=== PATIENT | male | born 1925 | race Caucasian/White ===

== ENCOUNTER 2016-08-12 13:07 | Inpatient (IN) | payer MEDICARE, BC ==
[2016-08-12] VITALS (10 sets, daily range): BP systolic 121–161; BP diastolic 44–69
[~2016-08-12] VITALS: Ht 182.9 cm; Wt 85.2 kg
[~2016-08-12 13:07] MED LIST: ACTOS30 MG PO; CENTRUM SILVER PO; CRESTOR5 M1 PO; FENOFIBRATE160 MG PO; FLOMAX0.4 M1 PO; FOLIC ACID1 MG PO; GLIPIZIDE10 MG PO; LEVAQUIN250 MG PO; LISINOPRIL10 MG PO; METO50TA52 PO; NAPROSYN500 MG PO; NEXIUM20 M1 PO; NIASPAN500 MG PO; NITROSTAT0.4 MG SL; PERCOCET1 TA4 PO; VITAMIN B-12500 MCG PO; VITAMIN D2000 UNI1 PO; XARELTO10 MG PO
[2016-08-12 14:53] LABS: HEMATOCRIT 39.8 % (39.0-50.0); IMMATURE GRANULOCYTES 0.5 % (0.0-1.0); MEAN CELL VOLUME 98.8 fL CALC (80.0-100.0); MEAN CORPUSCULAR HGB 32.3 pG CALC (26.0-32.0); MEAN CORPUSCULAR HGB CONC 32.7 g/L CALC (32.0-36.0); NEUT# 3.97 thou/uL (1.82-7.42); RED BLOOD COUNT 4.03 mill/uL (4.70-6.10); RED CELL DISTRI WIDTH 13.5 % (11.5-15.5)
[2016-08-12 15:41] LABS: CALCIUM 9.7 mg/dL (8.4-10.2); CREATININE 1.5 mg/dL (0.7-1.3); MAGNESIUM 1.6 mg/dL (1.6-2.3)
[2016-08-12 15:49] LABS: POTASSIUM 6.4 mmol/l (3.5-5.1)
[2016-08-12] MEDS ORDERED: FAMOTIDINE20 M1 PO (22:03)
[2016-08-12] MEDS ORDERED: SLOW-MAG PO (22:03)
[2016-08-12] MEDS ORDERED: AMILORIDE5 MG PO (22:04)
[2016-08-13] VITALS: BP 125/54
[2016-08-13 02:00] VITALS: BP 138/62; BP 97/54
[2016-08-13 04:00] VITALS: BP 160/65
[2016-08-13 05:45] LABS: URINE BILIRUBIN - DIPSTICK NEGATIVE (NEGATIVE); URINE BLOOD DIPSTICK NEGATIVE (NEGATIVE); URINE CLARITY CLEAR; URINE COLOR YELLOW; URINE GLUCOSE - DIPSTICK 100 mg/dL (NEGATIVE); URINE KETONE NEGATIVE (NEGATIVE); URINE LEUK ESTERASE NEGATIVE (NEGATIVE); URINE NITRITE - DIPSTICK NEGATIVE (Negative); URINE PH 5.5 (4.5-8.0); URINE PROTEIN - DIPSTICK NEGATIVE (NEG-TRACE); URINE UROBILINOGEN - DIPSTICK 0.2 E.U./dL (0.2)
[2016-08-13 06:27] VITALS: BP 140/64
[2016-08-13 06:59] LABS: HEMATOCRIT 39.6 % (39.0-50.0); IMMATURE GRANULOCYTES 1.2 % (0.0-1.0); MEAN CELL VOLUME 98.8 fL CALC (80.0-100.0); MEAN CORPUSCULAR HGB 32.4 pG CALC (26.0-32.0); MEAN CORPUSCULAR HGB CONC 32.8 g/L CALC (32.0-36.0); NEUT# 4.04 thou/uL (1.82-7.42); RED BLOOD COUNT 4.01 mill/uL (4.70-6.10); RED CELL DISTRI WIDTH 13.6 % (11.5-15.5)
[2016-08-13 08:02] VITALS: BP 155/58
[2016-08-13 08:11] LABS: ALBUMIN 3.3 g/dL (3.2-5.0); ALKALINE PHOSPHATASE 51 u/l (38-126); BILIRUBIN, TOTAL 0.6 mg/dL (0.0-1.4); BUN 38 mg/dL (8-23); BUN/CREATININE RATIO 31 (12-20 (CALC)); CALCIUM 9.4 mg/dL (8.4-10.2); CARBON DIOXIDE 22 mmol/l (22-30); CHLORIDE 112 mmol/l (95-108); CREATININE 1.2 mg/dL (0.7-1.3); GFR 57 ML/MIN (>=60 (CALC)); GFR FOR AFR.AMER. > 60 ML/MIN (>=60 (CALC)); GLUCOSE 71 mg/dL (82-115); SGOT/AST 18 u/l (19-48); SGPT/ALT 26 u/l (11-66); SODIUM 144 mmol/l (137-146); TOTAL PROTEIN 6.1 g/dL (6.3-8.2)
[2016-08-13 08:12] LABS: ANION GAP 16 (6-22 (CALC)); POTASSIUM 5.5 mmol/l (3.5-5.1)
[2016-08-13 11:15] VITALS: BP 144/65
== END 2016-08-13 15:19 | disposition home or self-care (01) | DRG 641 ==
LOC: ENPENDDIS → MS2 13:07 → ICU 13:07 → MS2 13:07 → ICU 08-13 15:19
PROVIDERS: ADMIT Internal Medicine; ATTEND Internal Medicine
DX: E87.5 Hyperkalemia (principal); N17.9 Acute kidney failure, unspecified; E11.22 Type 2 diabetes mellitus with diabetic chronic kidney disease; I13.0 Hypertensive heart and chronic kidney disease with heart failure and stage 1 through stage 4 chronic kidney disease, or unspecified chronic kidney disease; I50.22 Chronic systolic (congestive) heart failure; T46.4X5A Adverse effect of angiotensin-converting-enzyme inhibitors, initial encounter; T50.2X5A Adverse effect of carbonic-anhydrase inhibitors, benzothiadiazides and other diuretics, initial encounter; E78.5 Hyperlipidemia, unspecified; D63.1 Anemia in chronic kidney disease; E83.42 Hypomagnesemia; I48.2 Chronic atrial fibrillation; I65.23 Occlusion and stenosis of bilateral carotid arteries; I70.219 Atherosclerosis of native arteries of extremities with intermittent claudication, unspecified extremity; E11.42 Type 2 diabetes mellitus with diabetic polyneuropathy; N18.3 Chronic kidney disease, stage 3 (moderate); G47.33 Obstructive sleep apnea (adult) (pediatric)